=== PATIENT | male | born 1995 | race Caucasian/White ===

== ENCOUNTER 2020-07-15 09:07 | Outpatient (REF) | payer OTHER, SELFPAY | END 2020-07-15 09:08 | disposition home or self-care (01) | LOC: HO.LAB 09:07 | PROVIDERS: Visit Provider Internal Medicine | DX: Z20.828 Contact with and (suspected) exposure to other viral communicable diseases (principal) | CPT/HCPCS: C9803; U0003 ==

== ENCOUNTER 2020-08-30 10:46 | Outpatient (REF) | payer OTHER, SELFPAY ==
--- NOTE | 2020-08-30 10:51 | XR_ITS ---
EXAMINATION: XR RIBS, RIGHT CLINICAL INFORMATION: Chest/rib pain. COMPARISON: None TECHNIQUE: Frontal view chest and 3 views right ribs are obtained for a total of 4 views. FINDINGS: There is no visible rib fracture or rib destructive process. There is no pneumothorax or pleural reaction. No airspace consolidation or groundglass opacity or effusion. The costophrenic sulci are clear. The heart is normal in size. The hilar and mediastinal contours are normal. No free air beneath the diaphragms. No subcutaneous emphysema. XR/XR ribs RT min 3V w [id number] IMPRESSION: Unremarkable examination.
== END 2020-08-30 10:47 | disposition home or self-care (01) ==
LOC: HO.HMGCX 10:46
PROVIDERS: Visit Provider Nurse Practitioner Family
DX: R07.89 Other chest pain (principal); S29.9XXA Unspecified injury of thorax, initial encounter; X58.XXXA Exposure to other specified factors, initial encounter; Y93.9 Activity, unspecified; Y92.9 Unspecified place or not applicable; Y99.9 Unspecified external cause status
CPT/HCPCS: 71101